=== PATIENT | male | born 1950 | race Caucasian/White ===

== ENCOUNTER 2016-05-13 02:49 | Observation (INO) | payer BC ==
[~2016-05-13] VITALS: Ht 175.3 cm; Wt 72.8 kg
[~2016-05-13 02:49] MED LIST: ASPEC81 PO; MULT-506 PO
[2016-05-13] MEDS ORDERED: ASPIRIN 81 MG CHEW PO STA (03:01)
[2016-05-13] MEDS ORDERED: NITROGLYCERIN 0.4 MG SL PER TAB CHARGE SL STA (03:01)
[2016-05-13] MEDS ORDERED: ONDANSETRON INJ 2 MG/ML 2 ML VIAL IV STA (03:04)
[2016-05-13] MEDS ORDERED: MoRPHine SULFATE 4 MG/ML 1 ML CARP\\VIAL IV STA ×2 (03:04→03:38)
[2016-05-13 03:20] LABS: HEMATOCRIT 44.1 % (42-52); MEAN CELL VOLUME 86.5 fL (80-100); MEAN CORPUSCULAR HEMOGLOBIN 30.6 pg (25-34); MEAN CORPUSCULAR HGB CONC 35.4 g/dl (32-36); MEAN PLATELET VOLUME 10.1 fL (7.4-10.4); PLATELET COUNT 168 K/uL (130-400); WHITE BLOOD COUNT 10.26 K/uL (4.8-10.8)
[2016-05-13 03:30] LABS: ISTAT CREATININE 0.9 mg/dl (0.6-1.3); ISTAT IONIZED CALCIUM 1.09 mmol/l (1.12-1.32)
[2016-05-13] MEDS ORDERED: ASPI1TAB48 PO (03:36)
[2016-05-13 03:38] LABS: ALT/SGPT 26 U/L (12-78); AST/SGOT 7 U/L (15-37); BASO % 0.1 %; BASO ABS # 0.01 K/uL (0-0.2); BLOOD UREA NITROGEN 21 mg/dl (7-18); BUN/CREATININE RATIO 20.9 (10-20); CALCIUM 8.7 mg/dl (8.5-10.1); CARBON DIOXIDE 25 mmol/L (21-32); CHLORIDE 105 mmol/L (98-107); COMPLETE YES; GLUCOSE 155 mg/dl (70-99); IG% 0.3 %; LYMPH % 7.8 %; MONO % 2.6 %; NEUT % 89.2 %; POTASSIUM 3.4 mmol/L (3.5-5.1); SODIUM 142 mmol/L (136-145)
[2016-05-13] MEDS ORDERED: SODIUM CHLORIDE 0.9% 1000ML 1,000 ML IV STA (03:38)
[2016-05-13] MEDS ORDERED: SODIUM CHLORIDE 0.9% 500ML 500 ML IV STA (03:38)
[2016-05-13 03:43] LABS: ALKALINE PHOSPHATASE 76 U/L (45-117); CKMB/CK RATIO 1.2 (0-3.0)
[2016-05-13] MEDS ORDERED: CEFOXITIN SOD 2 GM VIAL IV STA (06:11)
--- NOTE | 2016-05-13 06:13 | EMERGENCY ROOM VISIT NOTE ---
History First contact with patient: 03:01 Chief Complaint: CHEST PAIN Stated Complaint: PAIN IN CHEST,THROWING UP Nursing Triage Summary: c/o chest pain/upper abdominal pain described as pressure since 1900 yesterday. History of Present Illness The patient is a 65 year old male who presents to the Emergency Room with complaints of severe epigastric pain since 7 PM. Patient ascribes pain as severe, 9 out of 10. Nothing makes it better or worse. This came on after eating macaroni and cheese tonight. Patient complains of nausea and vomiting without diarrhea. Patient denies dyspnea, fever, chills, cough, congestion, back pain, radiating pain. No leg pain or swelling. No history of heart disease. Patient states he is healthy and has no active medical problems. Review of Systems See HPI for pertinent positives & negatives. A total of 10 systems reviewed and were otherwise negative. Past Medical/Surgical History None Social History Smoking Status: Never Smoker Smokeless Tobacco Use: No Alcohol Use: none Drug Use: none Marital Status: Housing Status: lives with family Current/Historical Medications Scheduled Aspirin (Aspirin Low Dose), 81 MG PO DAILY Multivitamin (Multivitamin), 1 TAB PO DAILY Allergies Coded Allergies: No Known Allergies (Unverified , 05/13/16) Physical Exam Vital Signs Date Time Temp Pulse Resp B/P Pulse Ox O2 Delivery O2 Flow Rate FiO2 05/13/16 05:34 64 20 142/77 98 Room Air 05/13/16 03:36 52 05/13/16 03:16 100 Room Air 05/13/16 03:14 100 Room Air 05/13/16 03:14 100 Room Air 05/13/16 02:55 59 24 136/78 100 Room Air Physical Exam VITALS: Vitals are noted on the nurse's note and reviewed by myself. Vital signs stable. GENERAL: Pleasant male in obvious pain, well-developed well-nourished. SKIN: The skin was without rashes, erythema, edema, or bruising. There is no tenting of the skin. Capillary reflex less than 2 seconds. HEAD: Normocephalic atraumatic. EARS: External auditory canals clear, tympanic membranes pearly burt without erythema or effusion bilaterally. EYES: Pupils equal round and reactive to light and accommodation. Conjunctivae without injection, sclerae without icterus. Extraocular movements intact. NOSE: Patent, turbinates without inflammation or discharge. MOUTH: Mucous membranes mildly dry Pharynx without erythema or exudate. Uvula midline. Airway patent. Tongue does not deviate. NECK: Supple without nuchal rigidity. No lymphadenopathy. No thyromegaly. Cervical spine is nontender. No JVD. HEART: Regular rate and rhythm without murmurs gallops or rubs. LUNGS: Clear to auscultation bilaterally without wheezes, rales or rhonchi. No dullness to percussion. No retractions or accessory muscle use. ABDOMEN: Positive bowel sounds x 4. Normal tympanic percussion. Soft, minimally tender to palpation epigastric region, no CVA tenderness without masses or organomegaly. Borja sign negative. No guarding or rebound tenderness. MUSCULOSKELETAL: No muscle atrophy, erythema, or edema noted. NEURO: Patient was alert and oriented to person place and time. Normal sensation to light and sharp touch. No focal neurological deficits. Medical Decision & Procedures Laboratory Results 05/13/16 03:05 Red Blood Count 5.10, Mean Corpuscular Volume 86.5, Mean Corpuscular Hemoglobin 30.6, Mean Corpuscular Hemoglobin Concent 35.4, Mean Platelet Volume 10.1, Neutrophils (%) (Auto) 89.2, Lymphocytes (%) (Auto) 7.8, Monocytes (%) (Auto) 2.6, Eosinophils (%) (Auto) 0.0, Basophils (%) (Auto) 0.1, Neutrophils # (Auto) 9.15, Lymphocytes # (Auto) 0.80, Monocytes # (Auto) 0.27, Eosinophils # (Auto) 0.00, Basophils # (Auto) 0.01 05/13/16 03:05 Test 05/13/16 03:05 05/13/16 03:13 White Blood Count 10.26 K/uL (4.8-10.8) Red Blood Count 5.10 M/uL (4.7-6.1) Hemoglobin 15.6 g/dL (14.0-18.0) Hematocrit 44.1 % (42-52) Mean Corpuscular Volume 86.5 fL (80-100) Mean Corpuscular Hemoglobin 30.6 pg (25-34) Mean Corpuscular Hemoglobin Concent 35.4 g/dl (32-36) Platelet Count 168 K/uL (130-400) Mean Platelet Volume 10.1 fL (7.4-10.4) Neutrophils (%) (Auto) 89.2 % Lymphocytes (%) (Auto) 7.8 % Monocytes (%) (Auto) 2.6 % Eosinophils (%) (Auto) 0.0 % Basophils (%) (Auto) 0.1 % Neutrophils # (Auto) 9.15 K/uL (1.4-6.5) Lymphocytes # (Auto) 0.80 K/uL (1.2-3.4) Monocytes # (Auto) 0.27 K/uL (0.11-0.59) Eosinophils # (Auto) 0.00 K/uL (0-0.5) Basophils # (Auto) 0.01 K/uL (0-0.2) RDW Standard Deviation 40.5 fL (36.4-46.3) RDW Coefficient of Variation 12.7 % (11.5-14.5) Immature Granulocyte % (Auto) 0.3 % Immature Granulocyte # (Auto) 0.03 K/uL (0.00-0.02) Red Blood Cell Morphology Unremarkable Est Creatinine Clear Calc Drug Dose 74.7 ml/min Estimated GFR () 91.8 Estimated GFR (Non- 79.2 BUN/Creatinine Ratio 20.9 (10-20) Calcium Level 8.7 mg/dl (8.5-10.1) Total Bilirubin 0.4 mg/dl (0.2-1) Direct Bilirubin < 0.1 mg/dl (0-0.2) Aspartate Amino Transf (AST/SGOT) 7 U/L (15-37) Alanine Aminotransferase (ALT/SGPT) 26 U/L (12-78) Alkaline Phosphatase 76 U/L (45-117) Total Creatine Kinase 58 U/L (39-308) Creatine Kinase MB 0.7 ng/ml (0.5-3.6) Creatine Kinase MB Ratio 1.2 (0-3.0) Troponin I < 0.015 ng/ml (0-0.045) Total Protein 7.3 gm/dl (6.4-8.2) Albumin 3.9 gm/dl (3.4-5.0) Lipase 228 U/L (73-393) Bedside Hemoglobin 16.0 g/dl (14.0-18.0) Bedside Hematocrit 47 % (42-52) Bedside Sodium 141 mEq/L (135-144) Bedside Potassium 3.4 mEq/L (3.3-5.0) Bedside Chloride 101 mEq/L (101-112) Bedside Total CO2 22 mEq/l (24-31) Anion Gap 22.0 mmol/L (16-25) Bedside Blood Urea Nitrogen 24 mg/dl (7-18) Bedside Creatinine 0.9 mg/dl (0.6-1.3) Bedside Glucose (other) 165 mg/dl (70-99) Bedside Ionized Calcium (Emily) 1.09 mmol/l (1.12-1.32) Medications Administered Medications (Trade) Dose Ordered Sig/Toya Route Start Time Stop Time Status Last Admin Dose Admin Morphine Sulfate (MoRPHine SULFATE INJ) 4 mg NOW STAT IV 05/13/16 03:04 05/13/16 03:05 DC 05/13/16 03:16 4 MG Ondansetron HCl (Zofran Inj) 4 mg NOW STAT IV 05/13/16 03:04 05/13/16 03:05 DC 05/13/16 03:15 4 MG Morphine Sulfate 4 mg 4 mg NOW STAT IV 05/13/16 03:38 05/13/16 03:39 DC 05/13/16 03:44 4 MG Sodium Chloride 500 ml @ 999 mls/hr Q31M STAT IV 05/13/16 03:38 05/13/16 04:08 DC 05/13/16 03:38 999 MLS/HR Sodium Chloride (Nss 1000ml) 1,000 ml @ 125 mls/hr Q8H STAT IV 05/13/16 03:38 05/13/16 11:37 05/13/16 03:44 125 MLS/HR ED Course Prior records/ancillary studies reviewed. Triage Nursing notes reviewed. Additional history obtained from family. The patient's history was concerning for gastric pain. Differential diagnosis: Etiologies such as cardiac ischemia, cholecystitis, peritonitis, pancreatitis, aortic dissection, pulmonary embolism, pneumonia, pneumothorax, musculoskeletal , infections, pericarditis, myocarditis, esophageal rupture, gastrointestinal, as well as others were entertained. Physical examination: As above. ER treatment provided: Morphine, Zofran, IV fluids On reassessment the patient felt better. Diagnostic interpretation by me: The electrocardiogram was negative for pathologic change. Normal sinus, normal intervals, no acute ST-T wave changes. Impression normal sinus rhythm interpreted by myself Repeat EKG is unchanged The labs revealed no worrisome leukocytosis or electrolyte abnormality. Negative troponin 2 hours apart Imaging studies: US RUQ: Distended gallbladder with sludge and small stones. Trace pericholecystic edema or fluid. Positive Borja's sign. Normal gallbladder wall. Findings consistent with acute cholecystitis. No biliary obstruction. Liver and Visualized portions of the pancreas are unremarkable. Right kidney unremarkable. Radiologist: Cecelia Muniz M.D. Chest x-ray with no acute consolidation or pneumothorax or free air per my interpretation Consultation: A consultation was placed with the surgeon, Dr. Rose. The case was discussed and diagnostics were reviewed. The patient was evaluated in the ER for further treatment. He will see the patient in the ER. He recommends antibiotics and nothing by mouth. Exam and history seem consistent with acute cholecystitis. Patient will be evaluated by surgery. He was placed nothing by mouth. He was started on antibiotics. His pain was managed. He was hydrated as above. By the evaluation outlined above emergent etiologies such as cardiac ischemia, aortic dissection, pulmonary embolism, pneumonia, pneumothorax, infections, pericarditis, myocarditis, gastrointestinal, as well as others were deemed relatively unlikely. The pt informed about the findings as listed above. All questions were answered and pleased with the treatment. Case reviewed with my attending Medical Decision As above Impression Primary Impression: Acute cholecystitis Departure Information Dispostion Being Evaluated By Surgeon Condition FAIR Referrals No Doctor, Assigned (PCP) Patient Instructions My [facility]
[2016-05-13 06:30] VITALS: O2SAT 95
--- NOTE | 2016-05-13 06:43 | DIAGNOSTIC IMAGING REPORT ---
BILIARY ULTRASOUND CLINICAL HISTORY: Epigastric pain COMPARISON STUDY: No previous studies for comparison. FINDINGS: The pancreas appears normal as visualized. No hepatic masses are visualized. There is no ductal dilatation. There is sludge and calculi within the gallbladder. The common bile duct measures 4 mm. There is trace pericholecystic fluid/edema. The technologist reports a positive sonographic Borja sign. . There is no evidence of right-sided hydronephrosis IMPRESSION: 1. Cholelithiasis, gallbladder sludge, positive sonographic Borja sign, and trace pericholecystic fluid. No evidence of ductal dilatation. The findings may indicate acute cholecystitis. Clinical correlation is advocated. A nuclear medicine hepatobiliary study could be obtained in follow-up as deemed clinically necessary Electronically signed by: Christ Lipscomb M.D. 05/13/2016 6:41 AM Dictated Date/Time: 05/13/2016 6:38 AM
--- NOTE | 2016-05-13 06:48 | DIAGNOSTIC IMAGING REPORT ---
CHEST ONE VIEW PORTABLE CLINICAL HISTORY: Atypical chest pain COMPARISON STUDY: No previous studies for comparison. FINDINGS: The cardiac and mediastinal contours are normal. There is no evidence of focal pulmonary consolidation. There is no evidence of failure. No pleural effusions are visualized.[ IMPRESSION: No active disease in the chest. Electronically signed by: Christ Lipscomb M.D. 05/13/2016 6:47 AM Dictated Date/Time: 05/13/2016 6:46 AM
[2016-05-13] MEDS ORDERED: MoRPHine SULFATE 2 MG/ML CARP IV PRN ×2 (07:00)
[2016-05-13] MEDS ORDERED: MoRPHine SULFATE 4 MG/ML 1 ML CARP\\VIAL IV PRN (07:00)
[2016-05-13] MEDS ORDERED: ONDANSETRON INJ 2 MG/ML 2 ML VIAL IV ONE (07:05)
[2016-05-13 08:02] VITALS: BP 160/85; PULSE 85; TEMP 36.6; Ht 175.3 cm; Wt 72.8 kg
[2016-05-13] MEDS: LACTATED RINGER'S 1000ML 1,000 ML IV SCH ×2 (09:18→12:59)
--- NOTE | 2016-05-13 09:39 | History and Physical ---
History & Physical Date May 13, 2016. Chief Complaint pt with a 24 hour hx of worsening RUQ pain, epigastric pain and nausea. has had several similar attacks past couple of years but this was the worse. US showing acute cholecystits. History of Present Illness The patient is a 65 year old male with complaints of Past Medical/Surgical History inguinal hernia repair. Additional History Hepatic Disease: No Endocrine Disorder: No Kidney Disease: No Hypertension: No Heart Disease: No Bleeding Tendencies: No Infectious Diseases: No Allergies Coded Allergies: No Known Allergies (Unverified , 05/13/16) Home Medications Scheduled Aspirin (Aspirin Low Dose), 81 MG PO DAILY Multivitamin (Multivitamin), 1 TAB PO DAILY Physical Examination Skin: warm/dry Eyes: normal inspection, EOMI Head: normocephalic Neck: supple Respiratory/Chest: no respiratory distress Cardiovascular: no edema Abdomen / GI: + pertinent finding (soft. mild RUQ ttp. no g/r/r) Extremities: normal inspection Neurologic/Psych: alert, oriented x 3 Diagnosis acute cholecystitis Plan of Treatment discussed options and risks. bleeding/infection/dvt/pe/mi/injury to bile ducts or bowel etc...answered questions. ok to proceed with lap lauren today.
[2016-05-13] MEDS ORDERED: IV FLUIDS COMPLETED PRN (10:15)
[2016-05-13] MEDS ORDERED: PANTOprazole INJ 40 MG in SYRINGE 0 ML IV SCH (11:00)
--- NOTE | 2016-05-13 12:50 | History & Physical Bridge Note ---
H&P Re-Evaluation Bridge Note: I have examined the patient, reviewed the History & Physical and in the interval since the performance of the History & Physical I have noted the following changes of clinical significance: No changes noted
[2016-05-13] MEDS ORDERED: FENTANYL CITRATE INJ 50 MCG/1 ML 2 ML VIAL ONE ×2 (13:41→14:19)
[2016-05-13] MEDS ORDERED: MIDAZOLAM HCL 1 MG/ML 2ML VIAL ONE (13:41)
[2016-05-13] MEDS ORDERED: LIDOCAINE HCL 2% 2 ML VIAL (20MG/ML) ONE (13:41)
[2016-05-13] MEDS ORDERED: NEOSTIGMINE METHYLSULFATE 5 MG/5 ML SYR ONE (13:41)
[2016-05-13] MEDS ORDERED: ROCURONIUM BROMIDE 10 MG/ML 5 ML VIAL ONE (13:41)
[2016-05-13] MEDS ORDERED: ONDANSETRON INJ 2 MG/ML 2 ML VIAL ONE (13:41)
[2016-05-13] MEDS ORDERED: PROPOFOL IV EMULSION 10 MG/ML 20 ML VIAL IV ONE (13:41)
[2016-05-13] MEDS ORDERED: GLYCOPYRROLATE INJ 0.2 MG/ML VIAL ONE (13:41)
[2016-05-13] MEDS ORDERED: BUPIVACAINE/EPINEPHRINE 0.5% MPF 1:200,000 30 ML VIAL ONE (13:55)
[2016-05-13] MEDS ORDERED: SUCCINYLCHOLINE 100MG/5ML SYR IV ONE (14:05)
[2016-05-13] MEDS ORDERED: EpHEDrine SULFATE INJ 50 MG/ML AMP ONE (14:06)
--- NOTE | 2016-05-13 14:49 | [facility] Operative Report ---
Operative Report Operative Date May 13, 2016. Pre-Operative Diagnosis acute cholecystitis Post-Operative Diagnosis same Procedure(s) Performed lap lauren Surgeon Dr. Beka Rose Law Enforcement Director Surgeon(s) Juan Diego Gibson PA-C Estimated Blood Loss 20ML Findings acutely inflammed gallbladder Specimens A. Gallbladder Anesthesia GET Complication(s) None Disposition Recovery Room / PACU I attest to the content of the Intraoperative Record and any orders documented therein. Any exceptions are noted below.
--- NOTE | 2016-05-13 14:54 | Discharge Instructions ---
Discharge Instructions Admission Reason for Admission: Acute Cholecystitis Discharge Discharge Diagnosis / Problem: acute cholecystitis Discharge Goals Goal(s): Decrease discomfort Activity Recommendations Activity Limitations: as noted below Exercise/Sports Limitations: until after follow-up appointment May Resume Sexual Activity: after follow-up appointment Shower/Bathe: tomorrow . Instructions / Follow-Up Instructions / Follow-Up call [phone] for f/u appointment with Dr. Rose in 1-2 weeks. Current Hospital Diet Patient's current hospital diet: Clear Liquid Diet Discharge Diet Recommended Diet: Regular Diet Procedures Procedures Performed: Laparoscopic Cholecystectomy Pending Studies Studies pending at discharge: yes List of pending studies: pathology report Medical Emergencies . Who to Call and When: Medical Emergencies: If at any time you feel your situation is an emergency, please call 911 immediately. . Non-Emergent Contact Non-Emergency issues call your: Primary Care Provider, Surgeon Call Non-Emergent contact if: temperature is above 101, wound has increased drainage, wound has increased redness . "Provider Documentation" section prepared by Beka Rose. VTE Core Measure Inpt VTE Proph given/why not?: SCD's
[2016-05-13] MEDS ORDERED: NALOXONE HCL 0.4 MG/1 ML VIAL/CARP IV PRN (15:00)
[2016-05-13] MEDS ORDERED: PROMETHAZINE HCL INJ 12.5 MG in SODIUM CHLORIDE 0.9% 50ML 50 ML IV PRN (15:00)
[2016-05-13] MEDS ORDERED: ONDANSETRON INJ 2 MG/ML 2 ML VIAL IV PRN (15:00)
[2016-05-13] MEDS ORDERED: HYDROmorphone INJ 1 MG/ML SYR IV PRN (15:00)
[2016-05-13] MEDS ORDERED: FLUMAZENIL 0.1 MG/1 ML 10 ML VIAL IV PRN (15:00)
[2016-05-13] MEDS ORDERED: LABETALOL HCL IV 5 MG/ML 20ML IV PRN (15:00)
[2016-05-13] MEDS ORDERED: ATROPINE SULFATE 0.1 MG/ML 5ML SYR IV PRN (15:00)
[2016-05-13] MEDS ORDERED: EpHEDrine SULFATE INJ 50 MG/ML AMP IV PRN (15:00)
--- NOTE | 2016-05-13 15:24 | Anesthesiology Progress Note ---
Anesthesia Post Op Note Date & Time May 13, 2016 at 15:25 Vital Signs Pain Intensity: 0 Vital Signs Past 12 Hours Date Time Temp Pulse Resp B/P Pulse Ox O2 Delivery O2 Flow Rate FiO2 05/13/16 15:15 69 14 145/84 99 Mask 10 05/13/16 15:09 36.5 71 14 128/86 100 Mask 10 05/13/16 08:02 36.6 85 17 160/85 Room Air 05/13/16 07:34 91 05/13/16 06:30 86 20 142/81 95 Room Air 05/13/16 05:34 64 20 142/77 98 Room Air 05/13/16 03:36 52 Notes Mental Status: alert / awake / arousable, participated in evaluation Pt Amnestic to Procedure: Yes Nausea / Vomiting: adequately controlled Pain: adequately controlled Airway Patency, RR, SpO2: stable & adequate BP & HR: stable & adequate Hydration State: stable & adequate Anesthetic Complications: no major complications apparent
[2016-05-13 16:54] VITALS: BP 162/88; PULSE 69; TEMP 36.7; O2SAT 97
[2016-05-13 17:54] VITALS: BP 146/79; PULSE 83; TEMP 36.5; O2SAT 96
[2016-05-13] MEDS: HYDROCODONE/ACETAMOPHEN 5/325MG TAB PO PRN ×2 (17:56→22:00)
[2016-05-13] MEDS: NSS + 20MEQ KCL 1000ML 1,000 ML IV SCH (18:53)
[2016-05-13 19:04] VITALS: BP 168/77; PULSE 75; TEMP 36.8; O2SAT 93
[2016-05-13] MEDS: CEFOXITIN IV 2,000 MG in DEXTROSE 5% 50ML 50 ML IV SCH (21:57)
[2016-05-13 23:43] VITALS: BP 146/85; PULSE 78; TEMP 36.8; O2SAT 95
--- NOTE | 2016-05-14 00:14 | OPERATIVE REPORT ---
DATE OF OPERATION: 05/13/2016 PREOPERATIVE DIAGNOSIS: Acute calculus cholecystitis. POSTOPERATIVE DIAGNOSIS: Same. PROCEDURE: Laparoscopic cholecystectomy. SURGEON: Beka Rose DO FLUX MIXER: Edmond Gibson PA-C ESTIMATED BLOOD LOSS: Approximately 20 mL. COMPLICATIONS: No immediate. ANESTHESIA: General. DISPOSITION: The patient tolerated the procedure well. OPERATIVE NOTE: After informed consent was obtained, the patient was taken to the operating suite and placed in supine position. After successful intubation, the abdomen was shaved and sterilely prepped and draped in usual fashion. A supraumbilical incision made with an 11 blade scalpel and carried down through the soft tissue using electrocautery. The anterior rectus fascia was opened using electrocautery and two #0 Vicryl stay sutures were placed. Peritoneum was elevated with hemostats and incised under direct vision using a Metzenbaum scissor. A finger sweep was performed and a 12 mm trocar was placed. The abdomen was insufflated to 18 mmHg. Laparoscope was inserted and the abdomen was examined 360 degrees. A subxiphoid 5 mm port and 2 right upper quadrant 5 mm ports were placed under direct vision. The patient was placed in a reverse Trendelenburg position and slightly airplaned to the left. The gallbladder was acutely inflamed. It was soft enough that we could grab it and elevate it superiorly and laterally. I used blunt dissection with the [place] dissector to take down adhesions from the neck of the gallbladder. I was then able to slowly skeletonize the cystic duct. I was able to clip it twice proximally and once distally with a clip supervisor aluminum boat assembly and then transected with scissors. In a similar fashion, the cystic artery was identified, skeletonized, clipped and divided. There was a small posterior branch that I also clipped twice proximally and once distally and transected. I was then able to use electrocautery. I need to remove the gallbladder from the gallbladder fossa. It was removed intact. The gallbladder fossa bleeding points were controlled using small amounts of electrocautery. A thorough irrigation was performed. At the end of the procedure, there was adequate hemostasis and no evidence of a bile leak. We did a quick look around the abdomen. There were no other abnormalities. We placed the gallbladder into an EndoCatch bag and removed it from the umbilical port site. All the trocars were then removed and the abdomen was desufflated. The fascia of the camera port was closed using 0 Vicryl in a [id number] fashion. All the wounds were irrigated and closed using 4-0 Monocryl. Marcaine was injected around them for postoperative analgesia and skin glue used as a dressing. The patient was awakened, extubated, and transferred to recovery in stable condition. I attest to the content of the Intraoperative Record and any orders documented therein. Any exceptio ns are noted below.
[2016-05-14] MEDS: CEFOXITIN IV 2,000 MG in DEXTROSE 5% 50ML 50 ML IV SCH ×2 (02:30→08:40)
[2016-05-14 03:05] VITALS: BP 135/82; PULSE 76; TEMP 36.9; O2SAT 92
[2016-05-14] MEDS ORDERED: HYDR-5688 PO (07:08)
[2016-05-14 07:09] VITALS: BP 153/82; PULSE 74; TEMP 36.8; O2SAT 96
[2016-05-14] MEDS: NSS + 20MEQ KCL 1000ML 1,000 ML IV SCH ×3 (07:13→08:42)
[2016-05-14] MEDS: HYDROCODONE/ACETAMOPHEN 5/325MG TAB PO PRN (08:46)
[2016-05-14 09:22] VITALS: BP 153/82; PULSE 74; TEMP 36.8; O2SAT 96
--- NOTE | 2016-05-14 09:22 | Surgery Progress Note ---
Surgery Progress Note Date of Service May 14, 2016. Subjective Post OP Day: 1 + diet (regular breakfast), + feeling well, + pain controlled Objective Vital Signs: Date Time Temp Pulse Resp B/P Pulse Ox O2 Delivery O2 Flow Rate FiO2 05/14/16 07:15 Room Air 05/14/16 07:09 36.8 74 18 153/82 96 Room Air 05/14/16 03:05 36.9 76 17 135/82 92 Room Air 05/13/16 23:45 Room Air 05/13/16 23:43 36.8 78 146/85 95 Room Air 05/13/16 19:04 36.8 75 16 168/77 93 Room Air 05/13/16 17:54 36.5 83 16 146/79 96 Nasal Cannula 2.0 05/13/16 16:54 36.7 69 16 162/88 97 Nasal Cannula 2.0 05/13/16 15:51 36.6 05/13/16 15:45 70 14 130/85 98 Nasal Cannula 2 05/13/16 15:35 70 14 131/76 98 Nasal Cannula 2 05/13/16 15:25 80 14 127/74 99 Mask 10 05/13/16 15:20 Nasal Cannula 2.0 05/13/16 15:20 Nasal Cannula 2.0 05/13/16 15:15 69 14 145/84 99 Mask 10 05/13/16 15:09 36.5 71 14 128/86 100 Mask 10 Abdomen: non distended, soft Incision(s): clean, dry Assessment & Plan s/p lap lauren tolerating diet and analgesics ok for discharge
--- NOTE | 2016-05-14 09:23 | Surgery Progress Note ---
Surgery Progress Note Date of Service May 14, 2016. Subjective Post OP Day: 1 + feeling well no complaints pod 1. molly diet/ pain controlled. Objective Vital Signs: Date Time Temp Pulse Resp B/P Pulse Ox O2 Delivery O2 Flow Rate FiO2 05/14/16 07:15 Room Air 05/14/16 07:09 36.8 74 18 153/82 96 Room Air 05/14/16 03:05 36.9 76 17 135/82 92 Room Air 05/13/16 23:45 Room Air 05/13/16 23:43 36.8 78 146/85 95 Room Air 05/13/16 19:04 36.8 75 16 168/77 93 Room Air 05/13/16 17:54 36.5 83 16 146/79 96 Nasal Cannula 2.0 05/13/16 16:54 36.7 69 16 162/88 97 Nasal Cannula 2.0 05/13/16 15:51 36.6 05/13/16 15:45 70 14 130/85 98 Nasal Cannula 2 05/13/16 15:35 70 14 131/76 98 Nasal Cannula 2 05/13/16 15:25 80 14 127/74 99 Mask 10 05/13/16 15:20 Nasal Cannula 2.0 05/13/16 15:20 Nasal Cannula 2.0 05/13/16 15:15 69 14 145/84 99 Mask 10 05/13/16 15:09 36.5 71 14 128/86 100 Mask 10 General Appearance: no apparent distress Abdomen: soft Incision(s): clean, dry, intact Extremities: non-tender Assessment & Plan pod 1 lap lauren doing well ok for d/c instructions given
--- NOTE | 2016-05-14 10:20 | Anesthesiology Progress Note ---
Anesthesia Post Op Note Date & Time May 14, 2016 at 10:19 Vital Signs Pain Intensity: 3.0 Vital Signs Past 12 Hours Date Time Temp Pulse Resp B/P Pulse Ox O2 Delivery O2 Flow Rate FiO2 05/14/16 09:22 36.8 74 18 96 Room Air 05/14/16 07:15 Room Air 05/14/16 07:09 36.8 74 18 153/82 96 Room Air 05/14/16 03:05 36.9 76 17 135/82 92 Room Air 05/13/16 23:45 Room Air 05/13/16 23:43 36.8 78 146/85 95 Room Air Notes Mental Status: alert / awake / arousable, participated in evaluation Pt Amnestic to Procedure: Yes Nausea / Vomiting: adequately controlled Pain: adequately controlled Airway Patency, RR, SpO2: stable & adequate BP & HR: stable & adequate Hydration State: stable & adequate Anesthetic Complications: no major complications apparent
--- NOTE | 2016-05-14 14:39 | DISCHARGE SUMMARY ---
PRIMARY DISCHARGE DIAGNOSES: Acute cholecystitis, cholelithiasis. PROCEDURE PERFORMED: Laparoscopic cholecystectomy. HOSPITAL COURSE: The patient is a 65-year-old male who presented to Emergency Department with severe epigastric pain. His white count was 10,000 with a left shift and ultrasound showed cholelithiasis with sludge, pericholecystic fluid and a positive Borja sign. He was admitted to surgery service, taken to the operating room later in the morning for laparoscopic cholecystectomy. The procedure was well tolerated. He was returned to the surgical floor. Perioperative Mefoxin was continued. On postoperative day #1, he was tolerating regular diet and oral analgesics. His abdomen was soft. Incisions were clean and dry. He was stable for discharge. DISCHARGE INSTRUCTIONS: Discharge home. Follow up with Dr. Rose within 2 weeks. DISCHARGE MEDICATIONS: [place] 1-2 tablets every 4 hours as needed. May resume home aspirin 81 mg daily and daily multivitamin.
== END 2016-05-14 10:45 | disposition home or self-care (01) ==
LOC: ENRESERVTM → ENRESERVDT → C.EDB 02:50 → C.MSW 07:01
PROVIDERS: ADMIT Surgery; ATTEND Surgery
DX: K80.00 Calculus of gallbladder with acute cholecystitis without obstruction (principal); Z79.82 Long term (current) use of aspirin

== ENCOUNTER → 2017-01-18 | Outpatient (CLI) | payer BC ==
[~2017-01-18] MED LIST changes: -ASPEC81 PO; +ASPI1TAB48 PO
[2017-01-18 13:22] LABS: ALT/SGPT 26 U/L (12-78); AST/SGOT 18 U/L (15-37); BLOOD UREA NITROGEN 22 mg/dl (7-18); BUN/CREATININE RATIO 22.2 (10-20); CALCIUM 8.3 mg/dl (8.5-10.1); CARBON DIOXIDE 27 mmol/L (21-32); CHLORIDE 110 mmol/L (98-107); CREATININE 0.99 mg/dl (0.60-1.40); GLUCOSE 91 mg/dl (70-99); POTASSIUM 4.6 mmol/L (3.5-5.1); SODIUM 142 mmol/L (136-145)
[2017-01-18 13:25] LABS: ALB/GLOB RATIO 1.1 (0.9-2); ALKALINE PHOSPHATASE 72 U/L (45-117); CHOLESTEROL 181 mg/dl (0-200); CHOLESTEROL/HDL RATIO 3.4; HDL CHOLESTEROL 53 mg/dl; LDL CHOLESTEROL CALCULATED 117 mg/dl; TRIGLYCERIDES 55 mg/dl (0-150); VERY LOW DENSITY LIPOPROT CALC 11 mg/dl
== END | disposition home or self-care (01) ==
LOC: C.LABPVFM 08:05
PROVIDERS: ATTEND Family Medicine
DX: Z13.1 Encounter for screening for diabetes mellitus (principal); Z13.220 Encounter for screening for lipoid disorders; R97.20 Elevated prostate specific antigen [PSA]; N40.0 Benign prostatic hyperplasia without lower urinary tract symptoms